=== PATIENT | female | born 1955 ===

== ENCOUNTER 2017-05-23 08:35 | Day surgery (SDC) | payer MEDICARE, MEDICAID ==
[2017-05-21 08:42] VITALS: BMI 30.1
[2017-05-23] MEDS ORDERED: Lactated Ringer's 1,000 ML IV ONE ×2 (10:44)
[2017-05-23] MEDS ORDERED: ceFAZolin IV 1 gm in Dextrose 1 GM/50 ML BAG IVPB ONE (10:55)
[2017-05-23] MEDS ORDERED: Bupivacaine HCl 0.25% PF (10 ml) Inj ONE (10:55)
[2017-05-23] MEDS ORDERED: Propofol 10 mg/ml Inj (20 ML) ONE (11:21)
[2017-05-23] MEDS ORDERED: Midazolam 2 MG/2 ML VIAL ONE (11:21)
[2017-05-23] MEDS: Bupivacaine HCl 0.25% PF (10 ml) Inj ONE ×2 (11:32→11:43)
[2017-05-23] MEDS: Lidocaine 1% Inj (20ml) ONE ×2 (11:32→11:43)
[2017-05-23] MEDS ORDERED: HYDROmorphone 0.5 mg/0.5 ml ISec IVP PRN (12:12)
[2017-05-23] MEDS ORDERED: Oxycodone/Acetaminophen 5/325 mg Tab PO PRN (12:18)
[2017-05-23 15:07] VITALS: RESP 16
[2017-05-23 15:33] VITALS: O2SAT 99
[2017-05-23 15:37] VITALS: BP 115/68; PULSE 69; TEMP 97.6
--- NOTE | 2017-05-23 22:57 | OP ---
DATE OF PROCEDURE: 05/23/2017 PREOPERATIVE DIAGNOSIS: A mass of the left wrist. POSTOPERATIVE DIAGNOSIS: A mass of the left wrist. PROCEDURE PERFORMED: Wide and deep excision of mass of the left wrist. SURGEON: Dr. Bhatti. ANESTHESIA: General. BLOOD LOSS: 30 cc. POSTOPERATIVE CONDITION: Stable. INDICATIONS FOR PROCEDURE: This is a 61-year-old female with a recurrent mass of the left wrist who now will undergo wide and deep excision. DESCRIPTION OF PROCEDURE: The patient was taken to the operating room. IV sedation was administered. The left wrist was prepped and draped. An elliptical incision was made surrounding the mass overlying the radial artery and was dissected free down deep into the fascial layer. Bleeding was controlled using the Bovie. It was gently taken off the underlying layer; however, some bleeding from the radial artery was noted. We gained control of the radial artery and then removed the rest of the mass and repaired the radial artery with Prolene. The wound was irrigated with copious amounts of saline solution. It was closed in layers utilizing the tissue transfer closure using subcuticular Monocryl and skin clips. The patient tolerated the procedure well and returned to the recovery room in a stable condition. Yemi Bhatti MD
== END 2017-05-23 14:21 | disposition home or self-care (01) ==
LOC: C.SDS 08:35
PROVIDERS: ATTEND Surgery
DX: M67.432 Ganglion, left wrist (principal)
CPT/HCPCS: 25111; 88307; J0690; J2250; J2704; J3010; J7120

== ENCOUNTER 2017-07-31 06:14 | Day surgery (SDC) | payer MEDICARE, MEDICAID ==
[2017-05-21 08:42] VITALS: BMI 30.1
[2017-07-31] MEDS ORDERED: Lidocaine 2% Inj (20ml) ONE (07:26)
[2017-07-31] MEDS ORDERED: Bupivacaine HCl 0.5% PF (10 ml) Inj ONE ×3 (07:26→10:18)
[2017-07-31] MEDS ORDERED: Lidocaine 1% Inj (20ml) ONE (07:40)
[2017-07-31] MEDS ORDERED: Propofol 10 mg/ml Inj (20 ML) ONE ×2 (07:49→10:39)
[2017-07-31] MEDS ORDERED: Midazolam 2 MG/2 ML VIAL ONE (07:49)
[2017-07-31] MEDS ORDERED: Lactated Ringer's 1,000 ML IV ONE ×2 (07:55)
[2017-07-31] MEDS: ceFAZolin IV 2 gm in Dextrose 2 GM/50 ML BAG IVPB ONE ×2 (07:56→08:25)
[2017-07-31] MEDS ORDERED: Labetalol 25mg/5ml Syringe ONE (10:25)
--- NOTE | 2017-07-31 11:00 | PCM.SURG1 ---
Surgeon's Initial Post Op Note - Surgeon's Notes Surgeon: Dr. Phillips, DPM Magnetic Prospecting Operator: Dr. Rambo Desai PGY1, Dr. Pau Magana PGY2 Type of Anesthesia: General Endo Anesthesia Administered By: Dr. Rodgers Pre-Operative Diagnosis: Painful hardware left foot, Exostosis left fourth digit and left medial malleolus Operative Findings: See dictation report. M- Arthrex Quick Set Deminieralized Bone Matrix 5cc, 3-0 vicryl, 4-0 vicryl, 4-0 prolene Post-Operative Diagnosis: Same Operation Performed: Removal of painful hardware left foot, Exostectomy left medial malleolus, exostectomy left fourth digit, injection of demineralized bone matrix Specimen/Specimens Removed: Bone left medial malleolus Estimated Blood Loss: EBL {In ML}: 10 Blood Products Given: N/A Drains Used: No Drains Post-Op Condition: Good Date of Surgery/Procedure: 07/31/17 Time of Surgery/Procedure: 11:01
[2017-07-31] MEDS: HYDROmorphone 0.5 mg/0.5 ml ISec IVP PRN ×3 (11:26→12:36)
--- NOTE | 2017-07-31 13:57 | PCM.ANESB2 ---
Popliteal Nerve Block - Popliteal Nerve Block Date of Procedure: 07/31/17 Anesthesiologist: Vishal Procedure Performed: Popliteal Nerve Block Left - Procedure Popliteal Nerve Block: Left sciatic nerve block (popliteal approach) and left femoral nerve block ( adductor canal approach) performed at Dr. Phillips's request post-operatively in PACU. Consent obtained, skin prepped with chlorhexidine, sterile gloves worn. 20 cc 0.5% bupivacaine injected incrementally under ultrasound guidance around left sciatic nerve, negative aspiration throughout. 10 cc 0.5% bupivacaine injected under ultrasound guidance around left femoral nerve in the adductor canal, negative aspiration throughout. Patient tolerated procedure well.
[2017-07-31 14:09] VITALS: BP 111/70; PULSE 58; RESP 18; TEMP 97; O2SAT 100
--- NOTE | 2017-08-01 07:49 | OP ---
PROCEDURE DATE: 07/31/2017 SURGEON: Dejan Neumann DPM BUILDING INSPECTION ENGINEER: Rambo Desai, PGY-1, and Pau Magana, PGY-2. ANESTHESIOLOGIST: Dr. Rodgers. ANESTHESIA: General. PREOPERATIVE DIAGNOSES: Painful hardware, left foot; and exostosis left fourth digit and left medial malleolus. POSTOPERATIVE DIAGNOSES: Painful hardware, left foot; and exostosis fourth digit and left medial malleolus. NAME OF PROCEDURE: 1. Removal of painful hardware, left foot. 2. Removal of painful hardware, left foot. 3. Exostectomy, left medial malleolus. 4. Exostectomy, left fourth digit. INDICATIONS: The patient is a 61-year-old female with the above diagnoses. The patient has exhausted all conservative treatment options at this time and now requires surgical intervention. The patient signed the consent after careful explanation of risks, benefits, complications, and alternatives for surgical procedure. No guarantees were given or implied. NPO status was confirmed prior to taking the patient to the OR. PREPARATION: The patient was brought in to the operating room and placed on the operating room table in a supine position. Time-out was performed for identification of the correct patient and procedure. General anesthesia was administered to the patient. The left lower extremity was then prepped and draped in normal sterile manner. Thigh tourniquet at a pressure setting of 350 mmHg was then inflated and the procedure was began. PROCEDURE #1: Attention was first turned to the lateral rearfoot. Using a mini C-arm, location of the underlying screw was located. A #15 blade was used to create approximately 3 cm longitudinal incision down to the bone with care taking to avoid any underlying neurovascular and tendinous structures. A previously implanted metallic screw was then identified. Using Weld elevator, curved Hemostat and rongeur, all soft tissue and underlying bone were removed from the screw head. A screwdriver was then used to remove the screw from the foot and it was placed outside of the surgical filed. PROCEDURE #2: Attention was then turned to posterior heel. Using mini C-arm, the location of the underlying screw was located. A #15 blade was used to create approximately 4 cm transverse incision down to the bone with care taken to avoid any underlying neurovascular and tendinous structures. A previously implanted metallic screw was then identified. Using Weld elevator and curved Hemostat, all overlying soft tissue was removed from the screw head. A screwdriver was then used to remove the screw from the foot and it was placed outside of the surgical filed. PROCEDURE #3: Attention was then drawn to the level of the medial malleolus. Using a #15 blade, a 4 cm curvilinear incision was made superficially. Curved Hemostat was used to perform soft tissue dissection down to the level of periosteum with care taken to avoid all identifiable neurovascular, tendinous and ligamentous structures. A Carbone elevator was then used to free the periosteum from the medial malleolus thereby exposing the underlying bone. A bony exostosis on the medial malleolus was identified and removed with the use of osteotome and mallet. The remaining bone was smoothed down with a hand rasp until no sharp or jagged bony edges were identified. PROCEDURE #4: Attention was then turned to the left fourth digit where 1 cm incision was made down to the level of bone using a #15 blade at the level of middle phalanx on the lateral side and underlying exostosis was identified and the hand rasp was used to remove the exostosis so that bone remained at one even level. All incision sites were then flushed with copious amounts of normal sterile saline. Demineralized bone matrix was then injected into the void left by both screws that had been previously removed. The incision sites in the medial malleolus, posterior heel and lateral rearfoot were suture closed with 3-0 Vicryl sutures deep, 4-0 Vicryl sutures in the subcutaneous tissue and 4-0 Prolene superficially. Incision site on the fourth digit was closed superficially with 4-0 Prolene. The foot was then dressed with Xeroform gauze, Chela, Kerlix and Yoan bandaging. POSTOPERATIVE CONDITION: The patient tolerated the anesthesia and procedure well and was escorted to the recovery room with vital signs stable and neurovascular status intact to the left lower extremity. The patient is to remain weightbearing as tolerated in a surgical shoe and keep the dressing clean, dry and intact. The patient will follow up with Dr. Neumann in his office in one week. Rambo Desai DPM Dejan Neumann DPM [facility] # [id number]
== END 2017-07-31 14:57 | disposition home or self-care (01) ==
LOC: C.SDS 06:14
PROVIDERS: ATTEND Podiatrist Foot & Ankle Surgery
DX: T84.84XA Pain due to internal orthopedic prosthetic devices, implants and grafts, initial encounter (principal); M25.771 Osteophyte, right ankle; M89.9 Disorder of bone, unspecified
CPT/HCPCS: 20680; 27635; 28108; 64450; 88300; 88305; J0690; J1170; J2001; J2250; J2405; J2704; J3010; J7120

== ENCOUNTER 2019-01-17 09:55 | Outpatient (CLI) | payer MEDICARE, MEDICAID | END 2019-01-17 09:56 | disposition home or self-care (01) | LOC: C.PAT 09:55 | DX: D48.7 Neoplasm of uncertain behavior of other specified sites (principal) ==

== ENCOUNTER 2019-01-21 11:12 | Outpatient (CLI) | payer MEDICARE, MEDICAID | END 2019-01-21 11:13 | disposition home or self-care (01) | LOC: C.MAMMO 11:13 | DX: Z12.31 Encounter for screening mammogram for malignant neoplasm of breast (principal) ==

== ENCOUNTER 2019-01-22 09:39 | Day surgery (SDC) | payer MEDICARE, MEDICAID ==
[2019-01-22 10:44] VITALS: BMI 32.1
[2019-01-22] MEDS ORDERED: ceFAZolin 1 gm in NS 2 GM/200 ML BAG IVPB ONE (11:29)
[2019-01-22] MEDS ORDERED: Midazolam 2 MG/2 ML VIAL ONE (11:30)
[2019-01-22] MEDS ORDERED: Propofol 10 mg/ml Inj (20 ML) ONE (11:30)
[2019-01-22] MEDS ORDERED: HYDROmorphone 0.5 mg/0.5 ml ISec IVP PRN ×2 (11:41→11:51)
[2019-01-22] MEDS: Bupivacaine 0.25% 20 ML INJ IJ ONE ×2 (11:52→12:02)
[2019-01-22] MEDS ORDERED: Oxycodone/Acetaminophen 5/325 mg Tab PO PRN (12:25)
[2019-01-22 12:55] VITALS: O2SAT 100
[2019-01-22 13:36] VITALS: BP 129/70; PULSE 79; RESP 18; TEMP 97
--- NOTE | 2019-01-23 06:04 | OP ---
PROCEDURE DATE: 01/22/2019 PREOPERATIVE DIAGNOSIS: Mass of the left wrist. POSTOPERATIVE DIAGNOSIS: Mass of the left wrist. PROCEDURE: Wide deep excision of mass of the left wrist with advancement flap closure. SURGEON: Yemi Bhatti MD ANESTHESIA: General. BLOOD LOSS: 30 mL. POSTOPERATIVE CONDITION: Stable. INDICATIONS FOR SURGERY: This is a 63-year-old female with a recurrent mass of her left wrist, who will now undergo wide deep excision procedure. DESCRIPTION OF PROCEDURE: The patient was taken to the operating room, general anesthesia was administered. The left forearm, wrist, and hand were prepped and draped. A generous elliptical incision was made surrounding the mass. It was dissected into the joint space and removed. Bleeding was controlled using the Bovie. Bleeding from the radial artery was repaired with a 7-0 Prolene. Blood flow was determined by Doppler. Full-thickness tissue flaps were raised. Counterincisions were made, and an advancement flap closure was performed in multiple layers with Monocryl. The wound was closed with subcuticular Monocryl glue. The patient tolerated the procedure well and returned to recovery room in stable condition. Yemi Bhatti MD
== END 2019-01-22 13:51 | disposition home or self-care (01) ==
LOC: C.SDS 09:39
PROVIDERS: ATTEND Surgery
DX: M67.432 Ganglion, left wrist (principal)
CPT/HCPCS: 25111; 88307; J0690; J2250; J2704; J3010